=== PATIENT | female | born 1990 | race Caucasian/White ===

== ENCOUNTER 2016-10-07 12:50 | Inpatient (IN) | payer MEDICAID ==
[~2016-10-07] VITALS: Ht 157.5 cm; Wt 56.7 kg
[2016-10-07] MEDS ORDERED: VANCOMYCIN IV 1,000 MG in IV DEXTROSE 5% 250 ML IV ONE (13:15)
[2016-10-07] MEDS ORDERED: IV NORMAL SALINE 1000 ML BAG IV ONE (13:15)
[2016-10-07] MEDS ORDERED: GENTAMICIN SULFATE INJ 80 MG in IV DEXTROSE 5% 100 ML IV ONE (13:15)
--- NOTE | 2016-10-07 13:15 | NUR ---
PT IS IN ROOM #2B. DR PADILLA EVALUATED THE PT.
[2016-10-07 13:27] LABS: *BLOOD, URINE 2+ (NEGATIVE); *CLARITY,URINE CLOUDY (CLEAR); *COLOR,URINE DARK YELLOW (YELLOW); *KETONES,URINE NEGATIVE (NEGATIVE); *PROTEIN,URINE 1+ (NEGATIVE); *UROBILINOGEN,URINE 0.2 E.U./dl (NORMAL); LEUKOCYTE ESTERASE ,URINE 1+ (NEGATIVE); NITRITE, URINE NEGATIVE (NEGATIVE); PH,URINE 5.5 (5.0-8.0); UGLUCOSE NEGATIVE (NEGATIVE)
--- NOTE | 2016-10-07 13:35 | NUR ---
CODE SEPSIS WAS CALLED BY DR PADILLA. CODE SEPSIS PROTOCOL WAS STARTED .
[2016-10-07] MEDS ORDERED: GENTAMICIN SULFATE 80 MG/2 ML VIAL ONE (13:40)
[2016-10-07] MEDS ORDERED: VANCOMYCIN IV 200 ML ONE (13:40)
[2016-10-07 13:43] LABS: *URINE HCG, QUAL NEGATIVE (NEGATIVE)
[2016-10-07 13:52] LABS: *BILIRUBIN,URIN 1+ (NEGATIVE)
[2016-10-07 13:54] LABS: BACTERIA,URINE MODERATE /HPF (NONE SEEN); MUCUS,URINE MODERATE /LPF (0-FEW); SQUAMOUS EPITHELIAL CELL,UR MANY /HPF (NONE SEEN); TRICHOMONAS,URINE FEW /HPF (NONE SEEN); WBC,URINE 20-50 /HPF (0-3)
[2016-10-07 14:37] LABS: BASOPHILS # (AUTO) 0.1 K/uL (0.0-8.0); BASOPHILS % (AUTO) 0.4 % (0.0-2.0); EOSINOPHILS % (AUTO) 0.1 % (0.0-7.0); HEMATOCRIT 43.4 % (37-47); HEMOGLOBIN 14.4 G/DL (12.0-16.0); LYMPHOCYTES # (AUTO) 1.1 K/UL (0.8-4.8); LYMPHOCYTES % (AUTO) 7.8 % (20.5-51.5); MEAN CORPUSCULAR HEMOGLOBIN 29.4 UUG (27.0-31.0); MEAN CORPUSCULAR HGB CONC 33 g/dL (32.0-37.0); MEAN CORPUSCULAR VOLUME 88.7 FL (81.0-99.0); MONOCYTES # (AUTO) 1.6 K/UL (0.1-1.30); MONOCYTES % (AUTO) 11.9 % (0.0-11.0); NEUTROPHILS % (AUTO) 79.8 % (38.5-71.5); PLATELET COUNT (AUTO) 195 K/UL (150-450); RED BLOOD CELL COUNT(AUTO) 4.89 MIL/UL (4.2-5.4); WHITE BLOOD COUNT (AUTO) 13.8 K/UL (4.0-11.2)
[2016-10-07 14:39] LABS: CREATININE 0.8 mg/dL (0.6-1.3); POTASSIUM 2.9 mmol/L (3.5-5.1)
[2016-10-07 14:45] LABS: BILIRUBIN,DIRECT 0.1 mg/dL (0.0-0.2); BILIRUBIN,TOTAL 0.7 mg/dL (0.2-1.0); TOTAL PROTEIN, SERUM 6.2 g/dL (6.4-8.2)
[2016-10-07 15:03] LABS: BAND % (MANUAL) 33 % (0-10); LYMPHOCYTES % (MANUAL) 12 % (20-40); METAMYELOCYTES % 1 % (0-1); MONOCYTES % (MANUAL) 14 % (2-10); NEUTROPHILS % (MANUAL) 40 % (42-75)
--- NOTE | 2016-10-07 15:55 | NUR ---
RPORT WAS GIVEN TO RN M/S. PT WAS TRANSFERED TO ROOM #223.
[2016-10-07] MEDS ORDERED: ACETAMINOPHEN ES 500 MG TABLET ONE (16:01)
--- NOTE | 2016-10-07 16:54 | NUR ---
TYLENOL 1000 MG WAS GIVEN PO AT 1555 ACCORDING TO ER MD PADILLA ORDERS.
[2016-10-07 17:12] VITALS: BP 89/44
[2016-10-07 17:23] VITALS: BP 86/47
[2016-10-07] MEDS ORDERED: IV NORMAL SALINE 500 ML IV ONE (17:30)
[2016-10-07] MEDS ORDERED: MORPHINE SULFATE 2 MG/1 ML DISP.SYRIN IV PRN (17:30)
[2016-10-07] MEDS ORDERED: ONDANSETRON 4 MG/2 ML VIAL IV PRN (17:30)
[2016-10-07] MEDS ORDERED: ACETAMINOPHEN 325 MG TABLET PO PRN (17:30)
--- NOTE | 2016-10-07 17:42 | NUR ---
CLINICAL PHARMACY NOTE: VANCOMYCIN PHARMACY TO DOSE Subjective: To start vancomycin in this 26 y/o female who was found to have sepsis in the ER Objective: height 157 cm weight 56 kg BUN 10 Scr 0.8 Wbc 13.8 temp 102.2 1gm vancomycin given in ER today 10/07 @1415 Assessment/Plan As renal function seems ok, will start regimen of vancomycin 1gm q14hrs for estimated trough of 15.67. Second dose will be due tomorrow 10/08 early am at 0400. Will order trough before 4th scheduled dose (due 10/09 @ 0730). Will check trough and adjust as needed, will also follow renal function and dose per level if were to become unstable. will continue to monitor
--- NOTE | 2016-10-07 19:00 | NUR ---
PT IS LAYING IN BED COMFORTABLY. NO S/S OF RESPIRATORY DISTRESS NOTED. ALL SAFETY NEEDS ARE MET. PT JUST FINISHED 500 ML NS BOLUS. NO PAIN REPORTED.
[2016-10-07 20:00] VITALS: BP 88/56
[2016-10-07] MEDS ORDERED: PERMETHRIN 5% CREAM 60 GM TUBE TP ONE (20:00)
--- NOTE | 2016-10-07 20:00 | NUR ---
patient awake alert not in distress afebrile bp 88/56,pulse 103,respiratory 18, incontinence of urine and loose stool,patient was seen by Marilu Garcia impact retail service merchandiser,ordered received,patient has multiple skin lesions and scabs on over body and face,likely from scratching,placed on contact isolations for possible scabies and c diff.
[2016-10-07] MEDS: POTASSIUM CHLORIDE 20 MEQ in IV NS 1000 ML 1,000 ML IV PRN (21:45)
[2016-10-07] MEDS: METRONIDAZOLE 500 MG/NS 100ML 500 MG in PREMIXED 1 EACH IV SCH (21:46)
[2016-10-07] MEDS: PIPERACILLIN/TAZOBACTAM/D5W 3.375 G in PREMIXED 1 EACH IV SCH (21:46)
[2016-10-07 23:30] VITALS: BP 90/56
--- NOTE | 2016-10-08 00:05 | NUR ---
Elimite cream applied,patient sleeping, bp 90/55,SR/ST on monitor,patient keep clean and dry, close monitoring.
[2016-10-08] MEDS: VANCOMYCIN IV 1 G in PREMIXED 0 EACH IV SCH ×2 (03:49→17:25)
[2016-10-08 04:00] VITALS: BP 97/58
[2016-10-08] MEDS: METRONIDAZOLE 500 MG/NS 100ML 500 MG in PREMIXED 1 EACH IV SCH ×2 (05:08→14:05)
[2016-10-08] MEDS: PIPERACILLIN/TAZOBACTAM/D5W 3.375 G in PREMIXED 1 EACH IV SCH ×3 (05:41→21:17)
[2016-10-08] MEDS: PANTOPRAZOLE SODIUM 40 MG TABLET.DR PO SCH (05:41)
--- NOTE | 2016-10-08 06:59 | NUR ---
bp 97/54,ST with occ pac's,and pvc's ,stool sent to lab for c-diff,patient tolerated fluid well,no nausea noted.
--- NOTE | 2016-10-08 07:15 | NUR ---
CONTINUE IVF AND IV ANTIBIOTICS DENIES PAIN OR SOB
[2016-10-08 09:21] LABS: BASOPHILS # (AUTO) 0.1 K/uL (0.0-8.0); BASOPHILS % (AUTO) 0.9 % (0.0-2.0); EOSINOPHILS # (AUTO) 0.2 K/uL (0.0-0.7); EOSINOPHILS % (AUTO) 3.4 % (0.0-7.0); LYMPHOCYTES # (AUTO) 1.4 K/UL (0.8-4.8); LYMPHOCYTES % (AUTO) 20.4 % (20.5-51.5); MEAN CORPUSCULAR HEMOGLOBIN 30.6 UUG (27.0-31.0); MEAN CORPUSCULAR HGB CONC 34 g/dL (32.0-37.0); MEAN CORPUSCULAR VOLUME 89.2 FL (81.0-99.0); MONOCYTES # (AUTO) 0.6 K/UL (0.1-1.30); MONOCYTES % (AUTO) 8.7 % (0.0-11.0); NEUTROPHILS # (AUTO) 4.7 K/UL (1.8-8.9); NEUTROPHILS % (AUTO) 66.6 % (38.5-71.5); PLATELET COUNT (AUTO) 173 K/UL (150-450); RED BLOOD CELL COUNT(AUTO) 3.59 MIL/UL (4.2-5.4)
[2016-10-08 09:48] LABS: BILIRUBIN,TOTAL 0.5 mg/dL (0.2-1.0); CREATININE 0.6 mg/dL (0.6-1.3); MAGNESIUM 1.7 mg/dL (1.8-2.4); PHOSPHOROUS 2.4 mg/dL (2.5-4.9); TOTAL PROTEIN, SERUM 5.8 g/dL (6.4-8.2)
--- NOTE | 2016-10-08 10:00 | NUR ---
DR BANKS NOTIFIED OF LABS SAID WILL REVIEW LABS, PT ASYMPTOMATIC
[2016-10-08 10:20] LABS: POTASSIUM 2.7 mmol/L (3.5-5.1)
[2016-10-08] MEDS ORDERED: MAGNESIUM OXIDE 400 MG TABLET PO ONE (11:00)
[2016-10-08 11:43] VITALS: BP 88/60
[2016-10-08] MEDS: POTASSIUM PHOSPHATE MM 5 MMOL in IV DEXTROSE 5% 100 ML IV SCH ×4 (11:51→17:25)
--- NOTE | 2016-10-08 12:20 | NUR ---
DR BANKS NOTIFIED OF BP 88/60, PATIENT AWAKE ALERT NO SIGNS OF DISTRESS SAID OK FOR MIDLINE AND CONTINUE CURRENT IVF ORDERS. PT REMAINS ASYMPTOMATIC
--- NOTE | 2016-10-08 12:22 | NUR ---
CLINICAL PHARMACY NOTE: VANCOMYCIN PHARMACY TO DOSE Subjective: To continue vancomycin in this 26 y/o female who was found to have sepsis in the ER Objective: height 157 cm weight 56 kg BUN 4 Scr 0.6 Wbc 7.0 temp 98.9 1gm vancomycin given in ER 10/07 @1415 Assessment/Plan Renal function stable, continue regimen of vancomycin 1gm q14hrs for estimated trough of 15.67. Second dose was given today 0400. Ordered trough before 4th scheduled dose (due 10/09 @ 0730). Will check trough tomorrow am and adjust as needed, will also follow renal function and dose per level if were to become unstable. will continue to monitor
[2016-10-08] MEDS: POTASSIUM CHLORIDE 20 MEQ in IV NS 1000 ML 1,000 ML IV PRN (13:28)
--- NOTE | 2016-10-08 14:18 | NUR ---
INSERTION OF MIDLINE LEFT UPPER ARM COMPLETED PT TOLERATED WELL
[2016-10-08 15:40] VITALS: BP 90/52
[2016-10-08 17:38] VITALS: BP 94/55
--- NOTE | 2016-10-08 17:44 | NUR ---
MORE AWAKE AND RESPONSIVE, NO REACTION FROM IV ANTIBIOTIC, DENIES SOB OR PAIN. WATCHING TV
--- NOTE | 2016-10-08 19:00 | NUR ---
Pt alert, awake, and cooperative. No active signs distress. Pain verbalized to stomach 6/10. Tylenol PRN 650mg given PO.
[2016-10-08 20:00] VITALS: BP 86/56
[2016-10-08 21:04] LABS: *AMPHETAMINE, URINE POSITIVE (NEGATIVE); *BARBITURATE, URINE NEGATIVE (NEGATIVE); *CANNABINOID, URINE NEGATIVE (NEGATIVE); *COCCAINE, URINE NEGATIVE (NEGATIVE); *OPIATE, URINE NEGATIVE (NEGATIVE); *PHENCYCLIDINE SCREEN,URINE NEGATIVE (NEGATIVE)
[2016-10-09] VITALS: BP 77/42
[2016-10-09] MEDS ORDERED: IV NS 1000 ML 1,000 ML IV ONE ×2 (00:30→02:15)
--- NOTE | 2016-10-09 00:52 | NUR ---
Pt complains of dizziness. Pt's BP noted 77/42. Oxygen 100% RA. Dr Marquez was notified and ordered NS 2L 1000ml bolus. Carried and noted out. Pt
--- NOTE | 2016-10-09 01:02 | NUR ---
Pt asleep in no acute distress. BP noted 82/48. Tolerating bolus. Continue to monitor.
--- NOTE | 2016-10-09 03:30 | NUR ---
BP 106/72, SR ON TELEMONITOR,PATIENT ASLEEP IN NO ACUTE DISTRESS.
[2016-10-09 04:00] VITALS: BP 107/53
[2016-10-09] MEDS: POTASSIUM CHLORIDE 20 MEQ in IV NS 1000 ML 1,000 ML IV PRN ×2 (04:39→14:35)
[2016-10-09] MEDS: PANTOPRAZOLE SODIUM 40 MG TABLET.DR PO SCH (06:08)
[2016-10-09] MEDS: PIPERACILLIN/TAZOBACTAM/D5W 3.375 G in PREMIXED 1 EACH IV SCH ×3 (06:08→21:36)
[2016-10-09 06:51] LABS: BASOPHILS % (AUTO) 0.7 % (0.0-2.0); EOSINOPHILS # (AUTO) 0.3 K/uL (0.0-0.7); EOSINOPHILS % (AUTO) 6.1 % (0.0-7.0); HEMATOCRIT 29.5 % (37-47); HEMOGLOBIN 9.9 G/DL (12.0-16.0); LYMPHOCYTES # (AUTO) 1.7 K/UL (0.8-4.8); LYMPHOCYTES % (AUTO) 33.7 % (20.5-51.5); MEAN CORPUSCULAR HEMOGLOBIN 30.1 UUG (27.0-31.0); MEAN CORPUSCULAR HGB CONC 34 g/dL (32.0-37.0); MEAN CORPUSCULAR VOLUME 89.6 FL (81.0-99.0); MONOCYTES # (AUTO) 0.4 K/UL (0.1-1.30); MONOCYTES % (AUTO) 8.8 % (0.0-11.0); NEUTROPHILS # (AUTO) 2.6 K/UL (1.8-8.9); NEUTROPHILS % (AUTO) 50.7 % (38.5-71.5); PLATELET COUNT (AUTO) 132 K/UL (150-450); RED BLOOD CELL COUNT(AUTO) 3.29 MIL/UL (4.2-5.4)
[2016-10-09 07:00] LABS: ALANINE AMINOTRANSFERASE 24 U/L (14-59); ALKALINE PHOSPHATASE 58 U/L (50-136); ASPARTATE AMINOTRANSFERASE 28 U/L (15-37); BILIRUBIN,TOTAL 0.1 mg/dL (0.2-1.0); CARBON DIOXIDE 27 mmol/L (21-32); CHLORIDE 114 mmol/L (98-107); CREATININE 0.5 mg/dL (0.6-1.3); GLUCOSE 100 mg/dL (74-106); MAGNESIUM 1.5 mg/dL (1.8-2.4); PHOSPHOROUS 2.6 mg/dL (2.5-4.9); POTASSIUM 3.6 mmol/L (3.5-5.1); TOTAL PROTEIN, SERUM 5.3 g/dL (6.4-8.2); UREA NITROGEN, BLOOD 3 mg/dL (7-18)
[2016-10-09] MEDS ORDERED: MAGNESIUM OXIDE 400 MG TABLET PO ONE ×2 (09:15→12:30)
[2016-10-09 10:00] LABS: IRON, SERUM 14 ug/dL (50-175)
[2016-10-09 12:01] VITALS: BP 112/64
[2016-10-09 12:04] VITALS: BP 105/69
[2016-10-09 15:44] VITALS: BP 95/53
[2016-10-09 20:00] VITALS: BP 99/59
--- NOTE | 2016-10-09 20:00 | NUR ---
PT IN ROOM A/O X 3. NO S/S OF DISTRESS. DENIES ANY PAIN AT THIS TIME. CONTINUE ZOSYN AT THIS TIME.
--- NOTE | 2016-10-10 01:00 | NUR ---
PT SLEEPING IN ROOM. NO S/S OF REACTION TO CURRENT ANTIBIOTIC THERAPY. CONTINUE MONITORING. NO ACUTE DISTRESS NOTED.
--- NOTE | 2016-10-10 01:00 | NUR ---
PT REQUESTING PAIN MEDICATION. BLOOD DRAW FOR TROPONIN LEVELS DONE AT THIS TIME. NO ACUTE DISTRESS AT THIS TIME. DENIES ANY CHEST PAIN. Addendum: 10/10/16 at 0227 by PRICE ETIENNE RN WRONG PT. INCORRECT. DISREGARD.
[2016-10-10 01:14] VITALS: BP 92/54
[2016-10-10] MEDS: POTASSIUM CHLORIDE 20 MEQ in IV NS 1000 ML 1,000 ML IV PRN (02:08)
[2016-10-10 05:10] VITALS: BP 117/72
[2016-10-10 05:20] VITALS: BP 95/56
[2016-10-10] MEDS: PIPERACILLIN/TAZOBACTAM/D5W 3.375 G in PREMIXED 1 EACH IV SCH ×2 (06:08→13:57)
--- NOTE | 2016-10-10 06:36 | NUR ---
PT SLEEPING IN ROOM. DENIES ANY PAIN OR DISCOMFORT AT THIS TIME. NO REACTION TO CURRENT ANTIBIOTIC IV. DENIES ANY DIZZINESS.
[2016-10-10] MEDS: PANTOPRAZOLE SODIUM 40 MG TABLET.DR PO SCH (07:46)
[2016-10-10] MEDS ORDERED: FERROUS SULFATE 325 MG TABEC PO SCH (09:15)
[2016-10-10] MEDS ORDERED: MULTIVITAMINS,THERAPEUTIC TABLET PO SCH (09:15)
[2016-10-10 11:13] VITALS: BP 91/56
[2016-10-10 15:09] VITALS: BP 98/59
--- NOTE | 2016-10-10 16:23 | NUR ---
The patient will be discharged today per Dr. Jackson. Spoke to the patient to confirm if she truly does not have a home to go to and to offer resources and she stated that she will be staying at her sister's home: [id number], [place] [address]. Asked if there will be someone to pick her up and she stated that she doesn't have anyone available at this time. Our RN Drop Clipper approved to offer a bus token for the patient and she was very thankful. Her RN, Marcela, is aware of her discharge plan.
[2016-10-10] MEDS ORDERED: PERM60CR19 TP (17:20)
[2016-10-10] MEDS ORDERED: MULT-24 PO (17:20)
[2016-10-10] MEDS ORDERED: FERR325T28 PO (17:20)
[2016-10-10] MEDS ORDERED: AMOX500C2 PO (17:20)
--- NOTE | 2016-10-10 18:46 | NUR ---
Patient discharged from unit with a friend. Patient IV line and arm band removed. Patient educated on prescribed medications. Patient instructed to continue PO antibiotics. Patient verbalized understanding. Patient also instructed to do rinse treatment in the morning. Patient given prescriptions.
[2016-10-10] MEDS ORDERED: AMOXICILLIN TRIHYDRATE 500 MG CAPSULE PO SCH (22:00)
[2016-10-10] MEDS ORDERED: PERMETHRIN 5% CREAM 60 GM TUBE TP ONE (22:00)
== END 2016-10-10 18:45 | disposition home or self-care (01) | DRG 720 ==
LOC: ER 12:50 → TELE 15:58 → MED 10-09 22:04
PROVIDERS: ADMIT Internal Medicine; ATTEND Internal Medicine
PROC: 05H633Z Insertion of Infusion Device into Left Subclavian Vein, Percutaneous Approach (ICD-10-PCS; principal; 2016-10-08)
DX: A41.9 Sepsis, unspecified organism (principal); E43 Unspecified severe protein-calorie malnutrition; G92 Toxic encephalopathy; D68.8 Other specified coagulation defects; B86 Scabies; N39.0 Urinary tract infection, site not specified; F15.10 Other stimulant abuse, uncomplicated; E87.6 Hypokalemia; Z59.0 Homelessness; Z80.3 Family history of malignant neoplasm of breast; L98.9 Disorder of the skin and subcutaneous tissue, unspecified; R19.7 Diarrhea, unspecified; Z68.22 Body mass index [BMI] 22.0-22.9, adult; R65.20 Severe sepsis without septic shock
CPT/HCPCS: 36415; 36569; 70030-TC; 71010; 80307; 83550; 83605; 83735; 84100; 84703; 85025; 85730; 87040; 87086; 87806; 93005; A4663; J1580; J2543; J3370; J3480; J3490; J7030; J7050; J7060

== ENCOUNTER 2018-06-01 14:44 | Emergency (ER) | payer MEDICAID, OTHER ==
[~2018-06-01] VITALS: Ht 160 cm; Wt 59.0 kg
[~2018-06-01 14:44] MED LIST: AMOX500C2 PO; FERR325T28 PO; MULT-24 PO; PERM60CR19 TP
--- NOTE | 2018-06-01 15:40 | NUR ---
graphic pre press trades worker Kandis is here & evaluating the patient.
--- NOTE | 2018-06-01 15:42 | NUR ---
Patient given written and verbal discharge instructions. Patient verbalizes understanding of instructions. Patient is ambulatory with steady gait and stable condition. Patient was also given list of available shelters in surrounding area & clinics for free medical services. (Please see the signed Homeless Waiver Form) .
--- NOTE | 2018-06-01 16:05 | NUR ---
3:35pm: SS consultation requested due to patient being homeless. SW met with patient in her assigned ED room. Patient was receptive to meeting with this SW. Patient is a 27 year old female who reports to be homeless. Patient states that she has been homeless for about 7 years. Patient's friend was present in the room, and patient stated that both she and her friend live together in [facility]. Patient came in to the ED today for back pain. Evaluated by Dr. Astorga and treatment instructions provided to the patient. SW discussed homeless resources with the patient, and offered information on homeless shelters, clinics, and places for meals and showers. Patient declined shelters, and was receptive to getting information on all the other resources that were discussed. SW provided patient with a copy of the [facility] Homeless Directory, which includes a list of places the patient can go throughout the week to take showers, and to get hot meals, sack lunches, and to receive items from food pantries. SW also provided patient with a list of medical and mental health clinics, and substance abuse treatment programs. SW also provided patient with a list of different pharmacies throughout the [facility], although patient stated that she would go to the [facility] in [place] to fill her prescriptions. Patient was provided with food. Patient was provided with a pair of pants and a sweater. Patient stated that she did not need assistance with transportation. TAYLOR Nunez provided patient with all necessary discharge instructions and prescriptions. Homeless Patient Waiver Form was completed and signed by the patient.
== END 2018-06-01 16:00 | disposition home or self-care (01) ==
LOC: ER 14:44
DX: R07.89 Other chest pain (principal); Z88.8 Allergy status to other drugs, medicaments and biological substances; Z59.0 Homelessness; Z79.899 Other long term (current) drug therapy; W51.XXXA Accidental striking against or bumped into by another person, initial encounter; Y93.89 Activity, other specified; Y92.89 Other specified places as the place of occurrence of the external cause; Y99.8 Other external cause status
CPT/HCPCS: 71101; A4663